=== PATIENT | male | born 1990 | race Hispanic/Latino ===

== ENCOUNTER 2020-10-15 18:03 | Emergency (ER) | payer OTHER ==
[~2020-10-15] VITALS: Ht 172.7 cm; Wt 80.5 kg
[2020-10-15 18:04] VITALS: BP 141/66
[2020-10-15] MEDS ORDERED: IBUP200C25 PO (18:24)
[2020-10-15] MEDS ORDERED: KETOROLAC 30 MG/ML 1ML VIAL IV ONE (19:30)
[2020-10-15] MEDS ORDERED: METHOCARBAMOL 1,000 MG/10 ML VIAL (J2800) IV ONE (19:30)
[2020-10-15 20:30] LABS: BLOOD UREA NITROGEN 16 MG/DL (7-18); CALCIUM LEVEL 9.2 MG/DL (8.5-10.1); CARBON DIOXIDE LEVEL 28 MEQ/L (21-32); CHLORIDE LEVEL 107 MEQ/L (98-107); CPK CREATINE PHOSPHOKINASE 537 U/L (39-308); CREATININE FOR GFR 1.08 MG/DL (0.70-1.30); GLOMERULAR FILTRATION RATE > 60.0 (>60); GLUCOSE, FASTING 107 MG/DL (70-100); POTASSIUM SERUM 3.6 MEQ/L (3.5-5.1); SODIUM LEVEL 141 MEQ/L (136-145)
[2020-10-15] MEDS ORDERED: NAPR-837 PO (21:18)
[2020-10-15] MEDS ORDERED: ROBA750T4 PO (21:18)
== END 2020-10-15 21:40 | disposition home or self-care (01) ==
LOC: EDBD 18:03 → M ED 18:03
DX: S76.912A Strain of unspecified muscles, fascia and tendons at thigh level, left thigh, initial encounter (principal); X50.0XXA Overexertion from strenuous movement or load, initial encounter; Y92.9 Unspecified place or not applicable; Y93.89 Activity, other specified; Y99.9 Unspecified external cause status; M54.5 Low back pain; Z79.899 Other long term (current) drug therapy
CPT/HCPCS: 80048; 82550; 83605; 96374; 96375; 99284; J1885; J2800